=== PATIENT | female | born 1960 | race Hispanic/Latino ===

== ENCOUNTER → 2023-11-22 | Outpatient (CLI) | payer OTHER ==
[~2023-11-22] MED LIST: CALC-960 PO; MELO-106 PO; MVIT PO; ROSU10TA22 PO
== END | disposition home or self-care (01) ==
LOC: SHCH 09:32
PROVIDERS: ATTEND Internal Medicine Cardiovascular Disease
DX: I87.2 Venous insufficiency (chronic) (peripheral) (principal); I87.1 Compression of vein; I73.9 Peripheral vascular disease, unspecified
CPT/HCPCS: 93925; 93970

== ENCOUNTER → 2024-02-16 | Outpatient (CLI) | payer OTHER | END | disposition home or self-care (01) | LOC: SHCH 14:22 | PROVIDERS: ATTEND Internal Medicine Cardiovascular Disease | DX: I87.2 Venous insufficiency (chronic) (peripheral) (principal) | CPT/HCPCS: 93971 ==